=== PATIENT | male | born 1950 | race Two or more races ===

== ENCOUNTER 2024-08-29 10:35 | Inpatient (IN) | payer MEDICARE, MEDICAID ==
[~2024-08-29] VITALS: Ht 167.6 cm; Wt 93.3 kg
[2024-08-29] MEDS ORDERED: ONDANSETRON HCL 4 MG/2 ML VIAL IV PRN (11:30)
[2024-08-29] MEDS ORDERED: DOCUSATE SOD 100 MG CAP PO PRN (11:30)
[2024-08-29] MEDS ORDERED: ACETAMINOPHEN 325 MG TAB PO PRN (11:30)
[2024-08-29] MEDS ORDERED: LORazepam 0.5 MG TAB PO PRN (11:30)
[2024-08-29] MEDS ORDERED: MORPHINE SULFATE INJ 2 MG/ml SYRG IV PRN (11:30)
[2024-08-29 11:45] VITALS: BP 150/87; PULSE 64; RESP 17; TEMP 98; O2SAT 95
[2024-08-29 12:02] VITALS: PULSE 64; RESP 17; O2SAT 95
--- NOTE | 2024-08-29 12:11 | DVHHP2 ---
Review of Systems Medications Current Medications Medications Dose Ordered Sig/Zoraida Route Start Time Stop Time Status Last Admin Dose Admin Sodium Chloride 10 ml Q8HR IV 08/29/24 14:00 UNV Lorazepam 0.5 mg Q6HP PRN PO 08/29/24 11:30 UNV Docusate Sodium 100 mg BIDPRN PRN PO 08/29/24 11:30 UNV Acetaminophen 650 mg Q6HP PRN PO 08/29/24 11:30 UNV Acetaminophen/ Hydrocodone Bitart 1 tab Q4HP PRN PO 08/29/24 11:30 UNV Ondansetron HCl 4 mg Q4HP PRN IV 08/29/24 11:30 UNV Morphine Sulfate 2 mg Q4HPRN PRN IV 08/29/24 11:30 UNV Assessment/Plan Assessment/Plan SEE DICTATED NOTE Plan discussed with: Patient, Spouse Date of Service: Aug 29, 2024 Billing Provider: ANT FLORES MD Common Visit Codes: [id number] INP/OBS CARE (HIGH) Secondary Visit Codes: [id number] CARE PLAN 30 MINUTES ANT FLORES MD Aug 29, 2024 12:11
--- NOTE | 2024-08-29 12:16 | CODING ---
Date of Service: Aug 29, 2024 Billing Provider: ANT FLORES MD Common Visit Codes: [id number] INP/OBS CARE (HIGH) Secondary Visit Codes: 03610-[id number] CHNG SMOKING >10MIN, [id number] CARE PLAN 30 MINUTES ANT FLORES MD Aug 29, 2024 12:16
--- NOTE | 2024-08-29 12:33 | DVHHP ---
ADMIT DATE: 08/29/2024 HISTORY OF PRESENT ILLNESS: The patient is a 74-year-old gentleman who was admitted with a history of increasing pain and weakness in the left upper extremity. The patient's pain is now radiating up to the neck as well as to the base of the skull. The patient has had various treatments including physical therapy and steroid injections without much relief. He denies any trauma. No history of definitive focal deficit except for some numbness in the distal fingers. No chest pain. No shortness of breath. REVIEW OF SYSTEMS: Review of rest of systems is otherwise currently negative. PAST MEDICAL HISTORY: Significant for hypertension, questionable hyperlipidemia. MEDICATIONS: He takes atenolol and amlodipine. SOCIAL HISTORY: He smokes 4-5 cigarettes a day. Denies alcohol intake. FAMILY HISTORY: Negative. PHYSICAL EXAMINATION: GENERAL: The patient is awake, alert. VITAL SIGNS: Temperature of 98.6, pulse 72 per minute. SHEENT: Unremarkable. EXTREMITIES: He has pedal edema 1+. LUNGS: Equal bilaterally. No added sounds. CARDIOVASCULAR: S1 and S2 is regular without murmurs. ABDOMEN: Soft. There is no organomegaly. NEUROLOGIC: The patient has tenderness on movement of the left upper extremity, although he has grade 4 power in the left upper extremity. MUSCULOSKELETAL: Normal. ASSESSMENT AND PLAN: * Left-sided upper extremity pain, with cervical radiculopathy. The patient is to have an MRI of the spine and be seen by Dr. Strickland. * Hypertension. * BPH. * Questionable hyperlipidemia. * Tobacco abuse. The patient was advised to quit. He refused a nicotine patch at this time. ADVANCED CARE PLAN: The patient is a full code at this time. Time spent was 19 minutes. MD CLIFFORD Montgomery/CHRYSTAL/ISAÍAS TID: [id number] RECEIPT: [id number]
--- NOTE | 2024-08-29 12:39 | DVHINCON2 ---
MANJINDER RAMIREZ NP 08/29/24 1239: Consultation - Spinal Surgery Date Seen: Aug 29, 2024 Referring Physician Referring Physician Simone Cody MD Reason for Consultation Left-sided upper extremity pain, with cervical radiculopathy. History of Present Illness History of Present Illness The patient is a 74-year-old gentleman who was admitted with a history of increasing pain and weakness in the left upper extremity. The patient's pain is now radiating up to the neck as well as to the base of the skull. The patient has had various treatments including physical therapy and steroid injections without much relief. He denies any trauma. No history of definitive focal deficit except for some numbness in the distal fingers. No chest pain. No shortness of breath. Past Medical/Surgical History Past Medical/Surgical History PAST MEDICAL HISTORY: Significant for hypertension, questionable hyperlipidemia. Family and Social History Family and Social History SOCIAL HISTORY: He smokes 4-5 cigarettes a day. Denies alcohol intake. FAMILY HISTORY: Negative. Allergies and medications Allergies: Coded Allergies: NO KNOWN ALLERGIES (Unverified , 08/29/24) Review of systems Review of Systems: HEENT:Normal, CVS:Normal, RESPIRATORY:Normal, GI:Normal, :Normal, MSK:Normal, NEURO:Abnormal (left neck pain, intermittent cervical radiculopathy to bilateral hands) Examination Vital signs imaging MR cervical spine HISTORY: Cervical Stenosis TECHNIQUE: MR was performed with a surface coil at 1.5 T magnet. Sagittal, axial and coronal T1 and T2-weighted images were obtained. FINDINGS: Cervical vertebral bodies normal in height signal intensity and alignment At C2-3 no narrowing of the central canal and neural foramina At C3-4 effacement of the anterior cord surface by protruding disc and osteophytes with slight cord flattening. Slight foraminal narrowing by osteophytes At C4-5 slight moderate narrowing of the left neural foramen by osteophytes At C5-6 there is a 2 mm anterolisthesis due to degenerative facet joint disease. There is flattening of the anterior cord surface and osteophytes and bulging disc slight cord flattening. At C6-7 there is effacement of the left anterior cord surface and narrowing of the left neural foramen by osteophytes Cervical cord normal in size and signal intensity IMPRESSION: 1. Spinal stenosis caused by protruding discs osteophytes. At C3-C4, C5-C6, and C6-C7 there is flattening of the anterior cord surface without high-grade cord compression or signs of cord edema or atrophy. 2. At C4-C5 narrowing of the left neural foramen by osteophytes. At C5-C6 there is narrowing of the neural foramina right greater than left by osteophytes. At C6-C7 there is bilateral foraminal narrowing by osteophytes Vital Signs Date Time Temp Pulse Resp B/P (MAP) Pulse Ox O2 Delivery O2 Flow Rate FiO2 08/29/24 13:00 98.1 65 17 151/88 (109) 95 98.1 Medications Current Medications Medications (Trade) Dose Ordered Sig/Zoraida Route PRN Reason Start Time Stop Time Status Last Admin Sodium Chloride (Saline Lock Ns) 10 ml Q8HR IV 08/29/24 14:00 UNV Lorazepam (Ativan Tablet) 0.5 mg Q6HP PRN PO ANXIETY 08/29/24 11:30 UNV Docusate Sodium (Colace Capsule) 100 mg BIDPRN PRN PO FOR CONSTIPATION 08/29/24 11:30 UNV Acetaminophen (Tylenol Tablet) 650 mg Q6HP PRN PO PAIN SCALE 1-3 OR TEMP>100.4 08/29/24 11:30 UNV Acetaminophen/ Hydrocodone Bitart ([place] 5/325MG Tab) 1 tab Q4HP PRN PO MODERATE PAIN (4-6 PAIN SCALE) 08/29/24 11:30 UNV Ondansetron HCl (Zofran) 4 mg Q4HP PRN IV NAUSEA / VOMITING 08/29/24 11:30 UNV Morphine Sulfate 2 mg Q4HPRN PRN IV SEVERE PAIN (7-10 PAIN SCALE) 08/29/24 11:30 UNV Tamsulosin HCl (Flomax) 0.4 mg QPM PO 08/29/24 18:00 UNV Atenolol (Tenormin Tablet) 25 mg BID PO 08/29/24 22:00 UNV Hydralazine HCl (Apresoline Injection) 10 mg Q6HR IV 08/29/24 18:00 UNV Laboratory Labs Test 08/29/24 12:04 Range/Units Examination: GENERAL:Normal, HEENT:Normal, NECK:Abnormal (left lateral neck pain, cervical radiculopathy intermittently to fingers bilaterally), LUNGS:Normal, CVS:Normal, ABDOMEN:Normal, MSK:Normal (fields with 5/5 strength, and independently), SKIN:Normal, NEURO:Abnormal (left lateral neck pain, cervical radiculopathy intermittently to fingers bilaterally) Problem List/Assessment/Plan Problems: (1) Cervical stenosis of spinal canal (2) Muscle spasms of neck Assessment and Plan Plan surgery with Dr. Denny Strickland, C3-6 anterior cervical diskectomy and fusio n scheduled for August 30, 2024 Patient is to be NPO at midnight for surgery tomorrow morning Awaiting cardiac clearance/ medical clearance for surgery Risks and benefits have been discussed and the patients questions have been answered, he wishes to proceed with surgery. Call with questions Wesley Ramirez [facility] Orthopaedic Spine Surgery nurse practitioner For Dr Yaniv Strickland Patient was examined, chart reviewed, labs evaluated, and diagnostic studies and findings analyzed. Case was discussed with Dr. Denny Strickland who formulated the plan of care. This medical document was created using an electronic medical record system with [employer] dictation system. Although this document has been carefully reviewed, there might still be some phonetic and typographical errors. These areas are purely typographical due to imperfections of the software programs, and do not reflect any compromise in the patient's medical care. Plan discussed with Plan discussed with: Patient, Other (Judie Molina) DENNY STRICKLAND MD 08/30/24 1118: Consultation - Spinal Surgery Date Seen: Aug 30, 2024 Problem List/Assessment/Plan Assessment and Plan [place] [address] Ph: [phone] DIAGNOSTIC IMAGING Diagnostic Imaging Report : [id number] Signed PATIENT: JOLYNN TRINIDAD I ACCT: [id number] UNIT: [id number] : 1950 LOC: [facility] ROOM / BED: [facility] / A AGE / SEX: 74 / M ADM STATUS: ADM IN SERVICE 1117 ORDERING PHYSICIAN: HENNY GARCIA MD PROCEDURE(s): MNE - CERVICAL WO CONTRAST REASON: Cervical Stenosis ORDER NUMBER(s): [id number], ACCESSION NUMBER(s): [id number] MR cervical spine HISTORY: Cervical Stenosis TECHNIQUE: MR was performed with a surface coil at 1.5 T magnet. Sagittal, axial and coronal T1 and T2-weighted images were obtained. FINDINGS: Cervical vertebral bodies normal in height signal intensity and alignment At C2-3 no narrowing of the central canal and neural foramina At C3-4 effacement of the anterior cord surface by protruding disc and osteophytes with slight cord flattening. Slight foraminal narrowing by osteophytes At C4-5 slight moderate narrowing of the left neural foramen by osteophytes At C5-6 there is a 2 mm anterolisthesis due to degenerative facet joint disease. There is flattening of the anterior cord surface and osteophytes and bulging disc slight cord flattening. At C6-7 there is effacement of the left anterior cord surface and narrowing of the left neural foramen by osteophytes Cervical cord normal in size and signal intensity IMPRESSION: 1. Spinal stenosis caused by protruding discs osteophytes. At C3-C4, C5-C6, and C6-C7 there is flattening of the anterior cord surface without high-grade cord compression or signs of cord edema or atrophy. 2. At C4-C5 narrowing of the left neural foramen by osteophytes. At C5-C6 there is narrowing of the neural foramina right greater than left by osteophytes. At C6-C7 there is bilateral foraminal narrowing by osteophytes ATED BY: KRIS MENDEZ MD DICTATED DATE/TIME: 08/29/241610 SIGNED BY: KRIS MENDEZ MD SIGNED DATE/TIME: 08/29/241610 CC: The patient is completely incapacitated from the axial spine pain and radiculopathy symptoms. P.T. was tried and failed. Spinal injections were tried and failed. The patient is unable to perform activities of daily living and the symptoms have taken over the patient's life. Non operative treatment has been maximized and failed. The patient is asking for surgical recommendations from me. I think that surgery will offer benefit to the patient at this point. The patient and I viewed videos from my website detailing the diagnosis and treatment plan. The patient understands the diagnosis and treatment plan after watching the videos. I have offered the pt. : cervical 3 to 6 anterior cervical discectomy and fusion with bone graft and instrumentation The risks/benefits/alternatives of surgery including but not limited to pain, bleeding, infection, damage to surrounding soft tissue structures, need for reoperation or future surgery, persistent pain/disability/deformity, pseudarthrosis, bone graft collapse or extrusion of interbody device, instrumentation failure, need for instrumentation removal, dural tear, temporary or permanent nerve root damage, damage to esophagus/trachea/blood vessels, recurrent laryngeal nerve injury, dysphagia/odynophagia, paralysis, stroke, deep venous thrombosis, pulmonary embolism, and any associated anesthetic risks (dry mouth, sore throat, dental damage, myocardial infarction, respiratory depression, blindness) were described to the patient in detail and she wished to proceed. No guarantee of surgical outcome/improvement was implied. All of the questions were answered thoroughly and consents were obtained. We will obtain the necessary pre-op tests in order for her to be cleared medically. Plan discussed with Plan discussed with: Patient MANJINDER RAMIREZ NP Aug 29, 2024 12:39 DENNY STRICKLAND MD Aug 30, 2024 11:18
[2024-08-29 12:40] LABS: Urine Bacteria None Seen /hpf (None Seen)
[2024-08-29 12:58] LABS: Basophils # (auto) 0.1 10 ^3/uL (0-0.2); Basophils % (auto) 0.8 % (0.0-2.0); Eosinophils # (auto) 0.3 10 ^3/uL (0-0.8); Hematocrit 38.7 % (41.0-53.0); Hemoglobin 13.2 g/dL (13.5-17.5); Lymphocytes # (auto) 2.3 10 ^3/uL (0.4-5.4); Mean Corpuscular Hemoglobin 28.9 pg (28.0-32.0); Mean Corpuscular Hgb Conc. 34.1 g/dL (32.0-36.0); Mean Corpuscular Volume 84.9 fL (80.0-100.0); Monocytes # (auto) 0.8 10 ^3/uL (0-1.3); Monocytes % (auto) 9.8 % (0.0-12.0); Neutrophils % (auto) 59.4 % (37.0-80.0); Nucleated Red Blood Cells % 0.1 %; Platelet Count (auto) 205 10^3/uL (140-450); Red Blood Cells 4.56 10^6/uL (4.5-5.90); Red Cell Distribution Width 14.7 % (11.8-14.3); White Blood Cell 8.4 10^3/uL (4.4-10.8)
[2024-08-29 13:00] VITALS: BP 151/88; PULSE 65; RESP 17; TEMP 98.1; O2SAT 95
[2024-08-29 13:00] LABS: Alanine Aminotransferase 16 U/L (7-40); Albumin 4.4 g/dL (3.2-4.8); Alkaline Phosphatase 75 U/L (46-116); Anion Gap 7 (5-15); BUN/Creatinine Ratio 13.8 (10.0-20.0); Bilirubin, Total 0.6 mg/dL (0.2-1.0); Blood Urea Nitrogen 18 mg/dL (9-23); Calcium 10.3 mg/dL (8.7-10.4); Carbon Dioxide 28 mmol/L (20-31); Chloride 105 mmol/L (98-107); Glucose 89 mg/dL (74-106); Potassium 4.3 mmol/L (3.5-5.1); Sodium 140 mmol/L (136-145); Total Protein 7.3 g/dL (5.7-8.2)
[2024-08-29 13:05] LABS: Urine Blood Negative /uL (Negative); Urine Clarity Clear (Clear); Urine Color Light-Yellow (Yellow); Urine Protein, UAD Negative (Negative); Urine Specific Gravity 1.009 (1.001-1.035); Urine Squamous Epithelial Cell None Seen /hpf (<5); Urine Urobilinogen Normal (Negative); Urine WBC 4 /HPF (0-3)
[2024-08-29 13:08] LABS: Aspartate Aminotransferase 12 U/L (13-40); INR 1.03 (0.9-1.15); Partial Thromboplastin Time 25.4 SEC (24.5-34.5); Prothrombin Time 10.9 sec (9.3-11.8)
--- NOTE | 2024-08-29 13:18 | DVH ---
CHEST RADIOGRAPH Indication: sob Technique: Frontal and lateral view of the chest was obtained Comparison: None FINDINGS: Lines and Tubes: None Lungs: Patchy bilateral lower lobe airspace disease. Pleura: No effusion. No pneumothorax. Cardiomediastinal contours: Unremarkable Bones: Unremarkable IMPRESSION: Patchy bilateral lower lobe airspace disease.
[2024-08-29] MEDS: SODIUM CHLOR 0.9% PF (SALINE LOCK) 10ML VIAL/SYR IV SCH (14:00)
[2024-08-29] MEDS: HYDROcodone-ACET 5/325MG TAB PO PRN (16:02)
--- NOTE | 2024-08-29 16:14 | DVH ---
MR cervical spine HISTORY: Cervical Stenosis TECHNIQUE: MR was performed with a surface coil at 1.5 T magnet. Sagittal, axial and coronal T1 and T 2-weighted images were obtained. FINDINGS: Cervical vertebral bodies normal in height signal intensity and alignment At C2-3 no narrowing of the central canal and neural foramina At C3-4 effacement of the anterior cord surface by protruding disc and osteophytes with slight cord f lattening. Slight foraminal narrowing by osteophytes At C4-5 slight moderate narrowing of the left neural foramen by osteophytes At C5-6 there is a 2 mm anterolisthesis due to degenerative facet joint disease. There is flattening of the anterior cord surface and osteophytes and bulging disc slight cord flattening. At C6-7 there is effacement of the left anterior cord surface and narrowing of the left neural forame n by osteophytes Cervical cord normal in size and signal intensity IMPRESSION: 1. Spinal stenosis caused by protruding discs osteophytes. At C3-C4, C5-C6, and C6-C7 there is flatte bruno of the anterior cord surface without high-grade cord compression or signs of cord edema or atrop hy. 2. At C4-C5 narrowing of the left neural foramen by osteophytes. At C5-C6 there is narrowing of the n eural foramina right greater than left by osteophytes. At C6-C7 there is bilateral foraminal narrowin g by osteophytes
[2024-08-29 17:00] VITALS: BP 141/85; PULSE 76; RESP 16; TEMP 98; O2SAT 91
--- NOTE | 2024-08-29 17:46 | DVHINCON2 ---
Date of service: Aug 29, 2024 History of Present Illness 74 yo M with hx of borderline DM, htn, obesity admitted for severe neck pain. pt is getting eval for spine surgery. i am called for preop eval. pt has a cards in [place] and had some type of workup in past 6 months and "it was normal". Past Medical History reviewed Family History: Patient reports no known family medical history. Allergies: Coded Allergies: NO KNOWN ALLERGIES (Unverified , 08/29/24) Current Medications Current Medications Medications (Trade) Dose Ordered Sig/Zoraida Route PRN Reason Start Time Stop Time Status Last Admin Sodium Chloride (Saline Lock Ns) 10 ml Q8HR IV 08/29/24 14:00 Lorazepam (Ativan Tablet) 0.5 mg Q6HP PRN PO ANXIETY 08/29/24 11:30 Docusate Sodium (Colace Capsule) 100 mg BIDPRN PRN PO FOR CONSTIPATION 08/29/24 11:30 Acetaminophen (Tylenol Tablet) 650 mg Q6HP PRN PO PAIN SCALE 1-3 OR TEMP>100.4 08/29/24 11:30 Acetaminophen/ Hydrocodone Bitart ([place] 5/325MG Tab) 1 tab Q4HP PRN PO MODERATE PAIN (4-6 PAIN SCALE) 08/29/24 11:30 08/29/24 16:02 Ondansetron HCl (Zofran) 4 mg Q4HP PRN IV NAUSEA / VOMITING 08/29/24 11:30 Morphine Sulfate 2 mg Q4HPRN PRN IV SEVERE PAIN (7-10 PAIN SCALE) 08/29/24 11:30 Tamsulosin HCl (Flomax) 0.4 mg QPM PO 08/29/24 18:00 Atenolol (Tenormin Tablet) 25 mg BID PO 08/29/24 22:00 Hydralazine HCl (Apresoline Injection) 10 mg Q6HR IV 08/29/24 18:00 Review of Systems 10 pt ros otherwise negative Vital Signs Vital Signs Date Time Temp Pulse Resp B/P (MAP) Pulse Ox O2 Delivery O2 Flow Rate FiO2 08/29/24 13:00 98.1 65 17 151/88 (109) 95 98.1 Physical Exam nad s1 s2 rrr ctab soft nt/nd no edema Labs/Diagnostic Data Labs Test 08/29/24 12:39 08/29/24 12:04 Range/Units Urine Color Light-yellow Yellow Urine Clarity Clear Clear Urine pH 6.0 5.0-9.0 Urine Specific Josephine 1.009 1.001-1.035 Urine Protein Negative Negative Urine Ketones Negative Negative Urine Blood Negative Negative /uL Urine Nitrite Negative Negative Urine Bilirubin Negative Negative Urine Urobilinogen Normal Negative mg/dL Urine Leukocyte Esterase 1+ Negative /uL Urine RBC None seen 0 - 3 /hpf Urine Microscopic WBC 4 H 0-3 /HPF Urine Squamous Epithelial Cells None seen <5 /hpf Urine Bacteria None seen None Seen /hpf Urine Glucose Normal Normal mg/dL White Blood Count 8.4 4.4-10.8 10^3/uL Red Blood Count 4.56 4.5-5.90 10^6/uL Hemoglobin 13.2 L 13.5-17.5 g/dL Hematocrit 38.7 L 41.0-53.0 % Mean Corpuscular Volume 84.9 80.0-100.0 fL Mean Corpuscular Hemoglobin 28.9 28.0-32.0 pg Mean Corpuscular Hemoglobin Concent 34.1 32.0-36.0 g/dL Red Cell Distribution Width 14.7 H 11.8-14.3 % Platelet Count 205 140-450 10^3/uL Mean Platelet Volume 7.8 6.9-10.8 fL Neutrophils (%) (Auto) 59.4 37.0-80.0 % Lymphocytes (%) (Auto) 27.0 10.0-50.0 % Monocytes (%) (Auto) 9.8 0.0-12.0 % Eosinophils (%) (Auto) 3.0 0.0-7.0 % Basophils (%) (Auto) 0.8 0.0-2.0 % Neutrophils # (Auto) 5.0 1.6-8.6 10 ^3/uL Lymphocytes # (Auto) 2.3 0.4-5.4 10 ^3/uL Monocytes # (Auto) 0.8 0-1.3 10 ^3/uL Eosinophils # (Auto) 0.3 0-0.8 10 ^3/uL Basophils # (Auto) 0.1 0-0.2 10 ^3/uL Nucleated Red Blood Cells 0.1 % Prothrombin Time 10.9 9.3-11.8 sec Prothrombin Time INR 1.03 0.9-1.15 Activated Partial Thromboplast Time 25.4 24.5-34.5 SEC Sodium Level 140 136-145 mmol/L Potassium Level 4.3 3.5-5.1 mmol/L Chloride Level 105 98-107 mmol/L Carbon Dioxide Level 28 20-31 mmol/L Anion Gap 7 5-15 Blood Urea Nitrogen 18 9-23 mg/dL Creatinine 1.30 0.700-1.30 mg/dL Glomerular Filtration Rate Calc 58 >90 mL/min BUN/Creatinine Ratio 13.8 10.0-20.0 Serum Glucose 89 74-106 mg/dL Hemoglobin A1c 6.4 H <5.7 % A1C Calcium Level 10.3 8.7-10.4 mg/dL Total Bilirubin 0.6 0.2-1.0 mg/dL Aspartate Amino Transferase (AST) 12 L 13-40 U/L Alanine Aminotransferase (ALT) 16 7-40 U/L Alkaline Phosphatase 75 46-116 U/L Total Protein 7.3 5.7-8.2 g/dL Albumin 4.4 3.2-4.8 g/dL Assessment preop eval borderline DM HTN obesity c spine disease Plan/Recommendation pt cannot achieve 4 mets he can do all ADLs per notes, pt may have had SPECT done in past 6 months which was normal, ecg is SR and normal axis, normal cv exam HR and bp stable pt can proceed to OR at acceptable intermediate risk Plan discussed with: Patient HERRERACYRIL MD Aug 29, 2024 17:46
[2024-08-29] MEDS: hydrALAZINE HCL 20 MG/ML VL IV SCH (17:58)
[2024-08-29] MEDS: TAMSULOSIN HYDROCHLORIDE 0.4 MG CAP PO SCH (17:59)
--- NOTE | 2024-08-29 18:16 | DVHSR ---
APPROVED REPORT EXAM: Two-dimensional and M-mode echocardiogram with Doppler and color Doppler. INDICATION Pre-Op RISK FACTORS Height: 65, Weight: 190 DIMENSIONS LVDd4.7 (3.8-5.7cm)LA (2D)3.9 (1.9-4.0cm)Aortic Root4.0 (2.0-3.7cm) LVDs2.7 (2.5-4.0cm)LA (MM) (1.9-4.0cm)Aortic Cusp Exc1.9 (1.5-2.0cm) EF (%) 74.0 (55-70%)Rt. Atrium (1.9-4.0cm)Asc. Aorta cm IVSd1.1 (0.7-1.1cm)RV (D) (1.8-2.4cm) PWd1.1 (0.7-1.1cm) Mitral Valve MitralMitral Stenosis E wave0.84m/sMV Mean GR.mmHg A wave0.92m/sMV Peak GR.mmHg E/A ratio0.92D MVAcm2 DECEL [id number] 1/2 [id number] IVRTmsDop MVA2.88cm2 Aortic Valve Aortic ValveAortic Stenosis V11.04m/Haylee Mean GR.5mmHg V21.47m/Haylee Peak GR.9mmHg LVOT Diameter2.1 (1.8-2.4cm)Doppler AVA2.45cm2 Pulmonic Valve V20.98m/s Tricuspid Valve TR Velocity2.65m/s [id number] LEFT VENTRICLE Mild LVH Mild diastolic dysfunction LVEF normal 60-65% RIGHT VENTRICLE Systolic function is normal TRICUSPID VALVE mild pulmonary htn rvsp 35-40 Conclusion LVEF normal 60-65% Systolic function is normal Mild LVH Mild diastolic dysfunction mild pulmonary htn rvsp 35-40
[2024-08-29 20:00] VITALS: PULSE 68; RESP 17; O2SAT 95
[2024-08-29 21:00] VITALS: BP 133/78; PULSE 65; RESP 18; TEMP 97.9; O2SAT 95
[2024-08-29] MEDS: ATENOLOL 25 MG TAB PO SCH (21:41)
[2024-08-30] VITALS (11 sets, daily range): BP systolic 117–143; BP diastolic 59–82; PULSE 68–106; RESP 11–20; TEMP 97.5–98.4; O2SAT 93–98
--- NOTE | 2024-08-30 08:57 | ECG ---
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
[2024-08-30 09:07] LABS: PSA Free 1.46 ng/mL
[2024-08-30] MEDS: ceFAZolin 2 GM/D5W50ml 50 ML IV ONE (10:27)
[2024-08-30] MEDS: TRANEXAMIC ACID 20 ML ONE (10:28)
[2024-08-30] MEDS: cefTRIAXone 1GM/50ML D5W 50 ML IV ONE (10:30)
--- NOTE | 2024-08-30 10:30 | DVHPN2 ---
Progress Note Date Seen: Aug 30, 2024 Medical Necessity Reason Pt with a Central, PICC or Fol: No Subjective Patient reports: No new complaints Review of Systems: HEENT:Normal, CVS:Normal, RESPIRATORY:Normal, GI:Normal, :Normal, MSK:Normal, NEURO:Normal Objective vital signs Vital Sign Date Time Temp Pulse Resp B/P (MAP) Pulse Ox O2 Delivery O2 Flow Rate FiO2 08/30/24 09:00 98.4 88 19 117/59 (78) 96 98.4 08/30/24 08:00 Room Air* 0 21 Total Intake and Output 08/29/24 08/29/24 08/30/24 15:00 23:00 07:00 Intake Total 400 ml 100 ml Balance 400 ml 100 ml medications Current Medications Medications Dose Ordered Sig/Zoraida Route Start Time Stop Time Status Last Admin Dose Admin Sodium Chloride 10 ml Q8HR IV 08/29/24 14:00 08/30/24 05:27 10 ML Lorazepam 0.5 mg Q6HP PRN PO 08/29/24 11:30 Docusate Sodium 100 mg BIDPRN PRN PO 08/29/24 11:30 Acetaminophen 650 mg Q6HP PRN PO 08/29/24 11:30 Acetaminophen/ Hydrocodone Bitart 1 tab Q4HP PRN PO 08/29/24 11:30 08/29/24 16:02 1 TAB Ondansetron HCl 4 mg Q4HP PRN IV 08/29/24 11:30 Morphine Sulfate 2 mg Q4HPRN PRN IV 08/29/24 11:30 Tamsulosin HCl 0.4 mg QPM PO 08/29/24 18:00 08/29/24 17:59 0.4 MG Atenolol 25 mg BID PO 08/29/24 22:00 08/29/24 21:41 25 MG Hydralazine HCl 10 mg Q6HR IV 08/29/24 18:00 08/30/24 05:26 10 MG Examination: GENERAL:Normal, HEENT:Normal, NECK:Normal, LUNGS:Normal, CVS:Normal, ABDOMEN:Normal, MSK:Normal, SKIN:Normal, NEURO:Normal, :Normal laboratory and microbiology Laboratory Tests 08/29/24 12:04 Test 08/29/24 12:04 Range/Units Serum Glucose 89 74-106 mg/dL Problem List/Assessment/Plan Problem List/Assessment/Plan * Left-sided upper extremity pain, with cervical radiculopathy/ cervical stenosis: surg today * Hypertension. * BPH. * ? uti: culture, iv rocephin * Questionable hyperlipidemia. * Tobacco abuse. The patient was advised to quit. He refused a nicotine patch at this time- time spent 11 mins Plan discussed with: Other (rn) My Orders My Orders Orders - ANT FLORES MD Procedure Category Date Status Time Cardiac DIET 08/29/24 Transmitted Diet-2gna,Lofat,Lochol Lunch Tamsulosin PHA 08/29/24 In Process Hydrochloride (Flomax) 18:00 Atenolol Tablet PHA 08/29/24 In Process (Tenormin Tablet) 22:00 Hydralazine Injection PHA 08/29/24 In Process (Apresoline Inject 18:00 * Cardiology Consult CONS 08/29/24 Transmitted 12:50 Urine Bacterial BARBARA 08/30/24 Transmitted Culture 10:27 Ceftriaxone Ivpb PHA 08/31/24 Transmitted Rocephin 09:00 Ceftriaxone Ivpb PHA 08/30/24 Transmitted Rocephin 10:30 Complete Blood Count LAB 08/31/24 Verified 06:00 Comprehensive LAB 08/31/24 Verified Metabolic Panel 06:00 Date of Service: Aug 30, 2024 Billing Provider: ANT FLORES MD Common Visit Codes: [id number] INP/OBS CARE(HIGH) Secondary Visit Codes: [id number] CHNG SMOKING >10MIN NAT FLORES MD Aug 30, 2024 10:30
[2024-08-30] MEDS ORDERED: MIDAZOLAM HCL 2MG/2ML 2ml VIAL (1mg/ml) ONE (12:05)
[2024-08-30] MEDS ORDERED: PROPOFOL 10 MG/ML 20 ML IV ONE ×5 (12:05→15:25)
[2024-08-30] MEDS ORDERED: fentaNYL CITRATE 100 MCG/2 ML VL ONE (12:05)
[2024-08-30] MEDS ORDERED: DexAMETHasone SOD PHOS 10MG/1ML VIAL INJ ONE (12:17)
[2024-08-30] MEDS ORDERED: ONDANSETRON HCL 4 MG/2 ML VIAL ONE (12:17)
[2024-08-30] MEDS ORDERED: fentaNYL CITRATE 5 ML ONE (12:21)
[2024-08-30] MEDS: levoFLOXacin 500MG 200 ML IV ONE (12:36)
[2024-08-30] MEDS ORDERED: SUGAMMADEX 200mg/2ml Vial (100MG/ML) IV ONE (15:15)
[2024-08-30] MEDS ORDERED: HYDROCORTISONE SOD SUCC 100 MG/2ML INJ VIAL ONE (15:19)
[2024-08-30] MEDS ORDERED: ePHEDrine SULFATE 50 MG/ML AMP ONE (15:20)
[2024-08-30] MEDS ORDERED: MORPHINE SULFATE INJ 2 MG/ml SYRG IV PRN (16:00)
[2024-08-30] MEDS ORDERED: ONDANSETRON HCL 4 MG/2 ML VIAL IV PRN (16:00)
--- NOTE | 2024-08-30 16:04 | DVHOP2 ---
Operative Report - 2 Report Details Date: 08/30/24 Preop Diagnosis: cervical spinal stenosis with myelopathy Postop Diagnosis: same as pre op Surgeon: Denny Strickland MD Spring Assembler Supervisor: Henny Jurado NP Anesthesiologist: CM Anesthesia: General Consent: The patient was informed of the risks and benefits of the procedure. These include but are not limited to complications of anesthesia, postoperative infection, incomplete relief of symptoms, recurrence of symptoms, damage to blood vessels, nerves and tendons, deep venous thrombosis, pulmonary embolism a nd possible need for repeat surgery in the future. Name of Procedure Performed see detailed note Procedure Details Procedure Details: Pre Op Diagnosis: Cervical Degenerative Disk Disease and Severe Spinal Stenosis Causing incapacitating neck pain, radiculopathy and progressive neurologic deficit Post Op Diagnosis: 1. Cervical Degenerative Disk Disease and Spinal Stenosis Causing incapacitating neck pain, radiculopathy and progressive neurologic deficit Procedure: Cervical 3 to 4 anterior cervical discectomy with Cervical 3-4 foraminotomies and facetectomies to decompression the spinal canal and Cervical 4 nerve roots Cervical 4 to 5 anterior cervical discectomy with Cervical 4-5 foraminotomies and facetectomies to decompression the spinal canal and Cervical 5 nerve roots Cervical 5 to 6 anterior cervical discectomy with Cervical 5-6 foraminotomies and facetectomies to decompression the spinal canal and Cervical 6 nerve roots Cervical 3-6 anterior cervical Fusion Cervical 3-6 anterior cervical instrumentation with freestanding cages Cervical 3-4 placement of allograft prosthetic device Cervical 4-5 placement of allograft prosthetic device Cervical 5-6 placement of allograft prosthetic device Microscope for micro dissection Surgeon: Denny Strickland MD Anesthesia: General Assist: Henny Jurado NP Fluids and EBL: see anesthesia note Procedure Note: The patient was seen in the Pre-anesthesia Care Unit and the site of the incision was initialed by me with a felt tipped marker. All questions by the patient were answered to the satisfaction of the patient and the chart was re viewed. The patient was taken to the operating room and placed supine on the [facility] Flat top table. General anesthesia was induced. Neuromonitoring leads were placed. A rolled towel was placed between the shoulder blades to hyperextend out the chest which will allow better exposure of the cervical spine. Halter traction to 10 pounds was placed. The arms were padded and a dducted to the patients side making sure all pulses in the hands were present. Tape traction was undertaken on the shoulders to give us better radiographic exposure of the distal cervical spine. A gel-pad was placed under the occiput and 5 degrees of extension was placed on the neck without adverse effects to the patient. The anterior neck was prepped and draped. Pre-operative antibiotics were given 30 minutes prior to the start of the procedure. A c-arm fluoroscope was used to james out the incision site. At this time, a time out was taken per usual protocol. Next an incision was made through the skin with a 15 blade scalpel through the subcutaneous tissue down to the platysma. Self-retainers were placed. The platysma was incised along the longitudinal border with a Metzenbaum scissors. Blunt dissection was made through the deep cervical and pre-tracheal fascia taking care to protect the carotid sheath laterally and the Trachea/esophagus medially. The dissection was carried down to the prevertebral fascia. Any crossing vessels were ligated using a vascular clip or coagulated with a bovie. An esophageal retractor was next used to retract the trachea/esophagus and a bent [address] through the anterior annulus of the cervical disk and a lateral C-arm fluoroscopic image was taken to confirm that we were at the correct level. Next, bovie electrocautery was used to expose the bones of cervical 3,4,5,6 and bipolar electrocuatery was used to lift up the Longus colli and capitus muscles. Black-Belt Self Retainers were used to retract the longus colli and capitus muscles bilaterally as well as the trachea/esophagus to the right and the carotid sheath to the left. Smooth thin Black-Belt retractors were placed proximally and distally and a needle was placed again in the anterior annulus of the disk and an image taken to confirm the correct level. At this point, the microscope was wheeled in and an 11 blade scalpel incised the anterior annulus of the cervical 3/4 and 4/5 and 5/6 disks. Next, straight and curved curettes removed the remainder of the disks all the way down to the posterior longitudinal ligament. Carefully, a Kerison number one rongeur incised the posterior longitudinal ligament at the lateral end of the above disks and using a micro, blunt tip nerve hook to separate the posterior longitudinal ligament from the dura, alternating 1 mm and 2 mm Kerison rongeurs removed the posterior longitudinal ligament. Next, Kerison 1mm and 2 mm rongeurs were alternated to get under the uncinate processes and undercut them to perform foraminotomies and factectomies at the cervical 3/4 and 4/5 and 5/6 levels to decompress the central canal and cervical 4,5 and 6 nerve roots. Next the microscope was wheeled away and the c-arm fluoroscope was wheeled into the field and a lateral image was obtained. Increasing size graft trials were used starting at a 5 mm thick size until the proper tension in the disk space and height sikhism obtained. We then placed final free standing cages at C3/4 and 4/5 and 5/6. Satisfactory placement was confirmed in the AP and lateral views using a C-arm fluoroscope. Copious irrigation of the wound with sterile saline and all bleeding was controlled before closure initiated. At this point, a 10 Serbian round Jose M Drain was place deep to the Platysma muscle and the Platysma was approximated with one interrupted 0-Vicryl suture. The subcutaneous tissue was closed with interrupted 2-0 vicryl sutures and the skin was closed with sushil. Sterile dressings were placed and a cervical collar placed, the patient extubated, transferred to the stretcher and taken to the Recovery Room in unremarkable condition. Other Notes: Following the case, in PACU, the patient had placement of a Dellroy J equivalent cervical collar Condition Stable Disposition Still a Patient DENNY STRICKLAND MD Aug 30, 2024 16:04
[2024-08-30] MEDS: MIDAZOLAM HCL 2MG/2ML 2ml VIAL (1mg/ml) ONE (16:30)
[2024-08-30] MEDS: ONDANSETRON HCL 4 MG/2 ML VIAL IV ONE (16:30)
[2024-08-30] MEDS: MIDAZOLAM HCL 2MG/2ML 2ml VIAL (1mg/ml) IV PRN (16:40)
[2024-08-30] MEDS: HYDROmorphone HCL 2 MG/ML VL/or syr IV PRN (16:41)
[2024-08-30] MEDS: D5W/SOD CHLO 0.9% 1,000 ML IV SCH (18:50)
--- NOTE | 2024-08-30 19:27 | DVH ---
C-ARM FLUOROSCOPY: PROCEDURE: C3-6 ANTERIOR DISCECTOMY FLUOROSCOPY TIME: 63 sec DAP: 13.7 mgy FINDINGS: Spot intraoperative C arm radiographs demonstrating C3-6 ANTERIOR DISCECTOMY. IMPRESSION: Please refer to surgical report for detailed findings.
--- NOTE | 2024-08-30 19:27 | DVH ---
C-ARM FLUOROSCOPY: PROCEDURE: C3-6 ANTERIOR DISCECTOMY FLUOROSCOPY TIME: 63 sec DAP: 13.7 mgy FINDINGS: Spot intraoperative C arm radiographs demonstrating C3-6 ANTERIOR DISCECTOMY. IMPRESSION: Please refer to surgical report for detailed findings.
[2024-08-30] MEDS: CYCLOBENZAPRINE HCL 10 MG TAB PO SCH (21:27)
[2024-08-30] MEDS: DOCUSATE SOD 100 MG CAP PO SCH (21:28)
[2024-08-30] MEDS: methylPREDNISolone SOD SUCC 125 MG/2 ML VL IV SCH (21:29)
[2024-08-30] MEDS: ceFAZolin 1GM/50ML 50 ML IV SCH (21:30)
[2024-08-30] MEDS: TAMSULOSIN HYDROCHLORIDE 0.4 MG CAP PO ONE (23:30)
[2024-08-31] VITALS (8 sets, daily range): BP systolic 129–146; BP diastolic 61–93; PULSE 75–95; RESP 18–20; TEMP 97.5–98.9; O2SAT 94–97
[2024-08-31 05:45] LABS: Basophils # (auto) 0 10 ^3/uL (0-0.2); Eosinophils # (auto) 0 10 ^3/uL (0-0.8); Hematocrit 38.4 % (41.0-53.0); Hemoglobin 12.7 g/dL (13.5-17.5); Lymphocytes % (auto) 9.3 % (10.0-50.0); Mean Corpuscular Hemoglobin 28.5 pg (28.0-32.0); Mean Corpuscular Volume 86.6 fL (80.0-100.0); Monocytes # (auto) 0.2 10 ^3/uL (0-1.3); Monocytes % (auto) 1.4 % (0.0-12.0); Neutrophils # (auto) 9.3 10 ^3/uL (1.6-8.6); Neutrophils % (auto) 89.3 % (37.0-80.0); Nucleated Red Blood Cells % 0.1 %; Platelet Count (auto) 202 10^3/uL (140-450); Red Blood Cells 4.43 10^6/uL (4.5-5.90); Red Cell Distribution Width 15.3 % (11.8-14.3); White Blood Cell 10.4 10^3/uL (4.4-10.8)
[2024-08-31 05:53] LABS: Alanine Aminotransferase 16 U/L (7-40); Albumin 4.1 g/dL (3.2-4.8); Alkaline Phosphatase 70 U/L (46-116); Anion Gap 10 (5-15); Aspartate Aminotransferase 23 U/L (13-40); BUN/Creatinine Ratio 12.6 (10.0-20.0); Blood Urea Nitrogen 17 mg/dL (9-23); Calcium 9.4 mg/dL (8.7-10.4); Carbon Dioxide 23 mmol/L (20-31); Chloride 106 mmol/L (98-107); Potassium 4.5 mmol/L (3.5-5.1); Sodium 139 mmol/L (136-145); Total Protein 6.8 g/dL (5.7-8.2)
[2024-08-31 05:54] LABS: Bilirubin, Total 0.6 mg/dL (0.2-1.0)
[2024-08-31 06:01] LABS: Glucose 148 mg/dL (74-106)
[2024-08-31] MEDS: HYDROcodone-ACET 10/325MG TAB PO PRN (08:52)
[2024-08-31] MEDS ORDERED: cefTRIAXone 1GM/50ML D5W 50 ML IV SCH (09:00)
--- NOTE | 2024-08-31 09:00 | DVHPN2 ---
Progress Note - Surgical Date Seen: Aug 31, 2024 Post op day Post op day: 1 Subjective Patient reports: No new complaints, Feels better (Patient states that his preoperative symptoms have resolved) Review of Systems: HEENT:Normal, CVS:Normal, RESPIRATORY:Normal, GI:Normal, :Normal, MSK:Normal, NEURO:Normal (no new neuro deficits or decline over night) Objective Vital signs Vital Sign Date Time Temp Pulse Resp B/P (MAP) Pulse Ox O2 Delivery O2 Flow Rate FiO2 08/31/24 08:53 91 141/83 08/31/24 08:00 18 96 Room Air* 0 21 08/31/24 05:00 97.6 97.6 Total Intake and Output 08/30/24 08/30/24 08/31/24 15:00 23:00 07:00 Intake Total 110 ml 100 ml 330 ml Balance 110 ml 100 ml 330 ml Medications Current Medications Medications Dose Ordered Sig/Zoraida Route Start Time Stop Time Status Last Admin Dose Admin Sodium Chloride 10 ml Q8HR IV 08/29/24 14:00 08/31/24 05:38 10 ML Lorazepam 0.5 mg Q6HP PRN PO 08/29/24 11:30 Docusate Sodium 100 mg BIDPRN PRN PO 08/29/24 11:30 Tamsulosin HCl 0.4 mg QPM PO 08/29/24 18:00 08/29/24 17:59 0.4 MG Atenolol 25 mg BID PO 08/29/24 22:00 08/31/24 08:53 25 MG Hydralazine HCl 10 mg Q6HR IV 08/29/24 18:00 08/31/24 05:45 10 MG Ceftriaxone Sodium 50 ml @ 100 mls/hr DAILY@09 IV 08/31/24 09:00 Future hold Dextrose/Sodium Chloride 1,000 ml @ 100 mls/hr Q10H IV 08/30/24 16:00 08/31/24 02:00 100 MLS/HR Ondansetron HCl 4 mg Q4HP PRN IV 08/30/24 16:00 Acetaminophen 650 mg Q6HP PRN PO 08/30/24 16:00 Acetaminophen/ Hydrocodone Bitart 1 tab Q6HP PRN PO 08/30/24 16:00 08/31/24 08:52 1 TAB Morphine Sulfate 1 mg Q4HP PRN IV 08/30/24 16:00 Cyclobenzaprine HCl 10 mg TID PO 08/30/24 22:00 08/31/24 05:38 10 MG Docusate Sodium 100 mg BID PO 08/30/24 22:00 08/31/24 08:52 100 MG Cefazolin Sodium 50 ml @ 100 mls/hr Q8HR IV 08/30/24 22:00 09/01/24 14:29 08/31/24 05:39 100 MLS/HR Methylprednisolone Sodium Succinate 80 mg Q8HR IV 08/30/24 22:00 08/31/24 05:38 80 MG Laboratory Laboratory Tests 08/31/24 04:56 Test 08/31/24 04:56 Range/Units Serum Glucose 148 H 74-106 mg/dL Examination: GENERAL:Normal, HEENT:Normal, NECK:Normal, LUNGS:Normal, CVS:Normal, ABDOMEN:Normal, MSK:Normal, SKIN:Normal (Left lateral anterior neck wound well approximated with sushil, drain intact.), NEURO:Normal (Patient reports that his preoperative symptoms have resolved and he feels very good, up ambulating in the room), :Normal Problem List/Assessment/Plan Problems: (1) Postoperative pain after spinal surgery (2) Cervical stenosis of spinal canal (3) Muscle spasms of neck Assessment and Plan Events of today drain is discontinued Patient is up ambulating in room Patient has good dietary intake recommend discontinuing IV fluids Patient is progressing to discharge Continue physical therapy while in-house Disposition: -Pending per admitting team's discretion -Discharge RX: Spine recommends oral analgesics as well as muscle relaxers preferably Flexeril 10 mg 3 times a day -Follow up appointment: with Dr Strickland in two weeks [id number] [facility] [address] [place] [id number] -Pain: Per admitting team's discretion -Antibiotics Operative recommendations: -Postoperative dose:-Post operative antibiotics cefazolin 1 g IV piggyback every 8 hours x 48 hours total of 6 doses -DVT PPX: -Hold all chemical DVT/ blood thinners for 14 days postoperatively -use mechanical DVT PPX such as SCD's, ambulation -Activity: -Pending PT evaluation and patients progression -Sit at side of bed for meals -Goal: Ambulate independently and safely (may use assistive devices if needed) -Medical Therapy goals: -Afebrile- Patient may develop a expected post operative fever by day 2-3, this may not be accompanied with a elevation in WBC. if fever develops: Acetaminophen for fever. Albuterol nebulizer Tx every 12 hours for 24 hours to facilitate adequate lung expansion and prevent development of atelectasis. -Euglycemic: bloods sugars under 130mmol/L for optimal healing -Normotensive: Avoid events of hypertension. This helps to keep post operative healing intact and avoids destabilization of beneficial hemostatic coagulation. -Dressings -Anterior cervical patients: Nursing may change dressing as needed, expect continuous serosanguineous drainage for the next two days, this is normal and to be expected no -Bowel management: -Colace 100mg bid -Diet: Pants as tolerated -Incentive Spirometer: -10 x hour while awake, RN please educate and observe repeat demonstration, have IS at bedside POD #1 -X-rays: - none indicated at this time -Consults: -Physical Therapy evaluation, treatment recommendations, and discharge recommendations Call with questions Wesley Jurado [facility]- Orthopaedic Spine Surgery nurse practitioner For Dr Yaniv Strickland Patient was examined, chart reviewed, labs evaluated, and diagnostic studies and findings analyzed. Case was discussed with Dr. Denny Strickland who formulated the plan of care. This medical document was created using an electronic medical record system with [employer] dictation system. Although this document has been carefully reviewed, there might still be some phonetic and typographical errors. These areas are purely typographical due to imperfections of the software programs, and do not reflect any compromise in the patient's medical care. Plan discussed with Plan discussed with: Patient Visit Coding Surgery Date of Service if different f: Aug 31, 2024 Billing Provider: MANJINDER JURADO NP Surgery Visit Codes: NOT BILLABLE MANJINDER JURADO NP Aug 31, 2024 09:00
--- NOTE | 2024-08-31 10:15 | DVHPN2 ---
Progress Note Date Seen: Aug 31, 2024 Medical Necessity Reason Pt with a Central, PICC or Fol: No Subjective Patient reports: No new complaints Review of Systems: HEENT:Normal, CVS:Normal, RESPIRATORY:Normal, GI:Normal, :Normal, MSK:Normal, NEURO:Normal Objective vital signs Vital Sign Date Time Temp Pulse Resp B/P (MAP) Pulse Ox O2 Delivery O2 Flow Rate FiO2 08/31/24 09:00 98.1 91 20 141/83 (102) 95 98.1 08/31/24 08:00 Room Air* 0 21 Total Intake and Output 08/30/24 08/30/24 08/31/24 15:00 23:00 07:00 Intake Total 110 ml 100 ml 330 ml Balance 110 ml 100 ml 330 ml medications Current Medications Medications Dose Ordered Sig/Zoraida Route Start Time Stop Time Status Last Admin Dose Admin Sodium Chloride 10 ml Q8HR IV 08/29/24 14:00 08/31/24 05:38 10 ML Lorazepam 0.5 mg Q6HP PRN PO 08/29/24 11:30 Docusate Sodium 100 mg BIDPRN PRN PO 08/29/24 11:30 Tamsulosin HCl 0.4 mg QPM PO 08/29/24 18:00 08/29/24 17:59 0.4 MG Atenolol 25 mg BID PO 08/29/24 22:00 08/31/24 08:53 25 MG Hydralazine HCl 10 mg Q6HR IV 08/29/24 18:00 08/31/24 05:45 10 MG Ceftriaxone Sodium 50 ml @ 100 mls/hr DAILY@09 IV 08/31/24 09:00 Hold Dextrose/Sodium Chloride 1,000 ml @ 100 mls/hr Q10H IV 08/30/24 16:00 08/31/24 02:00 100 MLS/HR Ondansetron HCl 4 mg Q4HP PRN IV 08/30/24 16:00 Acetaminophen 650 mg Q6HP PRN PO 08/30/24 16:00 Acetaminophen/ Hydrocodone Bitart 1 tab Q6HP PRN PO 08/30/24 16:00 08/31/24 08:52 1 TAB Morphine Sulfate 1 mg Q4HP PRN IV 08/30/24 16:00 Cyclobenzaprine HCl 10 mg TID PO 08/30/24 22:00 08/31/24 05:38 10 MG Docusate Sodium 100 mg BID PO 08/30/24 22:00 08/31/24 08:52 100 MG Cefazolin Sodium 50 ml @ 100 mls/hr Q8HR IV 08/30/24 22:00 09/01/24 14:29 08/31/24 05:39 100 MLS/HR Methylprednisolone Sodium Succinate 80 mg Q8HR IV 08/30/24 22:00 08/31/24 05:38 80 MG Examination: GENERAL:Normal, HEENT:Normal, NECK:Normal, LUNGS:Normal, CVS:Normal, ABDOMEN:Normal, MSK:Normal, MSK:Abnormal (LEFT NECK DRESSING, DRAIN), SKIN:Normal, NEURO:Normal, :Normal laboratory and microbiology Laboratory Tests 08/31/24 04:56 Test 08/31/24 04:56 Range/Units Serum Glucose 148 H 74-106 mg/dL Problem List/Assessment/Plan Problem List/Assessment/Plan * Left-sided upper extremity pain, with cervical radiculopathy/ cervical stenosis: s/p surg * Hypertension. * BPH. * ? uti: culture, iv rocephin * Questionable hyperlipidemia. * Tobacco abuse. The patient was advised to quit. He refused a nicotine patch at this time- time spent 11 mins Plan discussed with: Patient My Orders My Orders Orders - ANT FLORES MD Procedure Category Date Status Time Urine Bacterial BARBARA 08/30/24 Logged Culture 10:27 Ceftriaxone 1gm/50ml PHA 08/31/24 In Process D5w (Rocephin) 09:00 Date of Service: Aug 31, 2024 Billing Provider: ANT FLORES MD Common Visit Codes: [id number] INP/OBS CARE(HIGH) ANT FLORES MD Aug 31, 2024 10:15
[2024-08-31] MEDS: SODIUM CHLORIDE 0.9% 1,000 ML IV SCH (12:42)
[2024-09-01 05:00] VITALS: BP 151/72; PULSE 70; RESP 17; TEMP 98.2; O2SAT 93
[2024-09-01 05:35] LABS: Basophils # (auto) 0 10 ^3/uL (0-0.2); Eosinophils # (auto) 0 10 ^3/uL (0-0.8); Hematocrit 38.1 % (41.0-53.0); Hemoglobin 12.4 g/dL (13.5-17.5); Lymphocytes # (auto) 0.8 10 ^3/uL (0.4-5.4); Lymphocytes % (auto) 5.2 % (10.0-50.0); Mean Corpuscular Hemoglobin 28.2 pg (28.0-32.0); Mean Corpuscular Hgb Conc. 32.7 g/dL (32.0-36.0); Mean Corpuscular Volume 86.2 fL (80.0-100.0); Monocytes # (auto) 0.5 10 ^3/uL (0-1.3); Monocytes % (auto) 3.2 % (0.0-12.0); Neutrophils # (auto) 14.3 10 ^3/uL (1.6-8.6); Neutrophils % (auto) 91.6 % (37.0-80.0); Nucleated Red Blood Cells % 0.1 %; Platelet Count (auto) 203 10^3/uL (140-450); Red Blood Cells 4.41 10^6/uL (4.5-5.90); Red Cell Distribution Width 15.7 % (11.8-14.3); White Blood Cell 15.6 10^3/uL (4.4-10.8)
[2024-09-01 05:44] LABS: Calcium 9.5 mg/dL (8.7-10.4); Chloride 107 mmol/L (98-107); Potassium 4.5 mmol/L (3.5-5.1); Sodium 141 mmol/L (136-145)
[2024-09-01 05:45] LABS: Anion Gap 7 (5-15); Carbon Dioxide 27 mmol/L (20-31)
[2024-09-01 05:50] LABS: BUN/Creatinine Ratio 20.8 (10.0-20.0)
[2024-09-01 05:57] LABS: Blood Urea Nitrogen 26 mg/dL (9-23); Glucose 177 mg/dL (74-106)
--- NOTE | 2024-09-01 06:27 | DVH ---
EXAM: XR Chest, 1 View CLINICAL INDICATION: HTN TECHNIQUE: Frontal view of the chest. COMPARISON: None FINDINGS: LUNGS AND PLEURAL SPACES: Left basilar atelectasis or pneumonia. No pneumothorax. HEART: Unremarkable. No cardiomegaly. MEDIASTINUM: Unremarkable. Normal mediastinal contour. BONES/JOINTS: Unremarkable. No acute fracture. OTHER FINDINGS: . . . IMPRESSION: Left basilar atelectasis or pneumonia.
--- NOTE | 2024-09-01 07:29 | DVHPN2 ---
Progress Note - Surgical Date Seen: Sep 01, 2024 Post op day Post op day: 2 Subjective Patient reports: No new complaints, Feels better Review of Systems: HEENT:Normal, CVS:Normal, RESPIRATORY:Normal, GI:Normal, GI:Abnormal, MSK:Normal, NEURO:Normal (no new decline or complaints) Objective Vital signs Vital Sign Date Time Temp Pulse Resp B/P (MAP) Pulse Ox O2 Delivery O2 Flow Rate FiO2 09/01/24 06:05 151/77 09/01/24 05:00 98.2 70 17 93 98.2 08/31/24 20:00 Room Air* 0 21 Total Intake and Output 08/31/24 08/31/24 09/01/24 15:00 23:00 07:00 Intake Total 510 ml 800 ml Balance 510 ml 800 ml Medications Current Medications Medications Dose Ordered Sig/Zoraida Route Start Time Stop Time Status Last Admin Dose Admin Sodium Chloride 10 ml Q8HR IV 08/29/24 14:00 09/01/24 06:05 10 ML Lorazepam 0.5 mg Q6HP PRN PO 08/29/24 11:30 Docusate Sodium 100 mg BIDPRN PRN PO 08/29/24 11:30 Tamsulosin HCl 0.4 mg QPM PO 08/29/24 18:00 08/31/24 17:47 0.4 MG Atenolol 25 mg BID PO 08/29/24 22:00 08/31/24 21:31 25 MG Hydralazine HCl 10 mg Q6HR IV 08/29/24 18:00 09/01/24 06:05 10 MG Ceftriaxone Sodium 50 ml @ 100 mls/hr DAILY@09 IV 08/31/24 09:00 Hold Ondansetron HCl 4 mg Q4HP PRN IV 08/30/24 16:00 Acetaminophen 650 mg Q6HP PRN PO 08/30/24 16:00 Acetaminophen/ Hydrocodone Bitart 1 tab Q6HP PRN PO 08/30/24 16:00 08/31/24 20:35 1 TAB Morphine Sulfate 1 mg Q4HP PRN IV 08/30/24 16:00 Cyclobenzaprine HCl 10 mg TID PO 08/30/24 22:00 09/01/24 06:05 10 MG Docusate Sodium 100 mg BID PO 08/30/24 22:00 08/31/24 21:27 100 MG Cefazolin Sodium 50 ml @ 100 mls/hr Q8HR IV 08/30/24 22:00 09/01/24 14:29 09/01/24 06:05 100 MLS/HR Methylprednisolone Sodium Succinate 80 mg Q8HR IV 08/30/24 22:00 09/01/24 06:04 80 MG Sodium Chloride 1,000 ml @ 75 mls/hr [id number] IV 08/31/24 10:15 08/31/24 12:42 75 MLS/HR Laboratory Laboratory Tests 09/01/24 04:50 Test 09/01/24 04:50 Range/Units Serum Glucose 177 H 74-106 mg/dL Examination: GENERAL:Normal, HEENT:Normal, NECK:Normal, LUNGS:Normal, CVS:Normal, CVS:Abnormal, MSK:Normal (moving all 4 extremities and ambulating independently ), SKIN:Normal (Anterior left surgical site well approximated with sushil, drain site is present however minimal drainage noted), NEURO:Normal (Patient verbalized resolution and preoperative symptoms), :Normal Problem List/Assessment/Plan Problems: (1) Muscle spasms of neck (2) Postoperative pain after spinal surgery Assessment and Plan Events of today Patient is up ambulating in room Patient has good dietary intake recommend discontinuing IV fluids Continue physical therapy while in-house Patient is cleared to discharge from a spine surgery perspective Disposition: -Pending per admitting team's discretion -Discharge RX: Spine recommends oral analgesics as well as muscle relaxers preferably Flexeril 10 mg 3 times a day -Follow up appointment: with Dr Strickland in two weeks [id number] [facility] [address] [place] [phone] -Pain: Per admitting team's discretion -DVT PPX: -Hold all chemical DVT/ blood thinners for 14 days postoperatively -use mechanical DVT PPX such as SCD's, ambulation -Activity: -PT evaluation and patients progression -Sit at side of bed for meals -Goal: Ambulate independently and safely (may use assistive devices if needed) -Medical Therapy goals: -Afebrile- Patient may develop a expected post operative fever by day 2-3, this may not be accompanied with a elevation in WBC. if fever develops: Acetaminophen for fever. Albuterol nebulizer Tx every 12 hours for 24 hours to facilitate adequate lung expansion and prevent development of atelectasis. -Euglycemic: bloods sugars under 130mmol/L for optimal healing -Normotensive: Avoid events of hypertension. This helps to keep post operative healing intact and avoids destabilization of beneficial hemostatic coagulation. -Dressings -Anterior cervical patients: Nursing may change dressing as needed, expect continuous serosanguineous drainage for the next two days, this is normal and to be expected no -Bowel management: -Colace 100mg bid -Diet: Pants as tolerated -Incentive Spirometer: -10 x hour while awake, RN please educate and observe repeat demonstration, have IS at bedside POD #1 -X-rays: - none indicated at this time -Consults: -Physical Therapy evaluation, treatment recommendations, and discharge recommendations Call with questions Wesley Jurado ACNP- Orthopaedic Spine Surgery nurse practitioner For Dr Yaniv Strickland Patient was examined, chart reviewed, labs evaluated, and diagnostic studies and findings analyzed. Case was discussed with Dr. Denny Strickland who formulated the plan of care. This medical document was created using an electronic medical record system with [employer] dictation system. Although this document has been carefully reviewed, there might still be some phonetic and typographical errors. These areas are purely typographical due to imperfections of the software programs, and do not reflect any compromise in the patient's medical care. Plan discussed with Plan discussed with: Patient Visit Coding Surgery Date of Service if different f: Sep 01, 2024 Billing Provider: MANJINDER JURADO NP Surgery Visit Codes: NOT BILLABLE MANJINDER JURADO NP Sep 01, 2024 07:29
[2024-09-01 08:00] VITALS: PULSE 73; RESP 20; O2SAT 96
[2024-09-01 09:00] VITALS: BP 127/76; PULSE 73; RESP 20; TEMP 98.4; O2SAT 96
--- NOTE | 2024-09-01 10:52 | DVHPN2 ---
Progress Note Date Seen: Sep 01, 2024 Medical Necessity Reason Pt with a Central, PICC or Fol: No Subjective Patient reports: No new complaints Review of Systems: HEENT:Normal, CVS:Normal, RESPIRATORY:Normal, GI:Normal, :Normal, MSK:Normal, NEURO:Normal Objective vital signs Vital Sign Date Time Temp Pulse Resp B/P (MAP) Pulse Ox O2 Delivery O2 Flow Rate FiO2 09/01/24 09:40 73 127/76 09/01/24 09:00 98.4 20 96 98.4 08/31/24 20:00 Room Air* 0 21 Total Intake and Output 08/31/24 08/31/24 09/01/24 15:00 23:00 07:00 Intake Total 510 ml 800 ml Balance 510 ml 800 ml medications Current Medications Medications Dose Ordered Sig/Zoraida Route Start Time Stop Time Status Last Admin Dose Admin Sodium Chloride 10 ml Q8HR IV 08/29/24 14:00 09/01/24 06:05 10 ML Lorazepam 0.5 mg Q6HP PRN PO 08/29/24 11:30 Docusate Sodium 100 mg BIDPRN PRN PO 08/29/24 11:30 Tamsulosin HCl 0.4 mg QPM PO 08/29/24 18:00 08/31/24 17:47 0.4 MG Atenolol 25 mg BID PO 08/29/24 22:00 09/01/24 09:40 25 MG Hydralazine HCl 10 mg Q6HR IV 08/29/24 18:00 09/01/24 06:05 10 MG Ceftriaxone Sodium 50 ml @ 100 mls/hr DAILY@09 IV 08/31/24 09:00 Hold Ondansetron HCl 4 mg Q4HP PRN IV 08/30/24 16:00 Acetaminophen 650 mg Q6HP PRN PO 08/30/24 16:00 Acetaminophen/ Hydrocodone Bitart 1 tab Q6HP PRN PO 08/30/24 16:00 08/31/24 20:35 1 TAB Morphine Sulfate 1 mg Q4HP PRN IV 08/30/24 16:00 Cyclobenzaprine HCl 10 mg TID PO 08/30/24 22:00 09/01/24 06:05 10 MG Docusate Sodium 100 mg BID PO 08/30/24 22:00 09/01/24 09:39 100 MG Cefazolin Sodium 50 ml @ 100 mls/hr Q8HR IV 08/30/24 22:00 09/01/24 14:29 09/01/24 06:05 100 MLS/HR Methylprednisolone Sodium Succinate 80 mg Q8HR IV 08/30/24 22:00 09/01/24 06:04 80 MG Sodium Chloride 1,000 ml @ 75 mls/hr [id number] IV 08/31/24 10:15 08/31/24 12:42 75 MLS/HR Examination: GENERAL:Normal, HEENT:Normal, NECK:Normal, LUNGS:Normal, CVS:Normal, ABDOMEN:Normal, MSK:Normal, MSK:Abnormal (NECK COLLAR), SKIN:Normal, NEURO:Normal, :Normal laboratory and microbiology Laboratory Tests 09/01/24 04:50 Test 09/01/24 04:50 Range/Units Serum Glucose 177 H 74-106 mg/dL Problem List/Assessment/Plan Problem List/Assessment/Plan * Left-sided upper extremity pain, with cervical radiculopathy/ cervical stenosis: s/p surg * Hypertension. * BPH. * ? uti: culture, iv ancef * Questionable hyperlipidemia. * Tobacco abuse. The patient was advised to quit. He refused a nicotine patch at this time- time spent 11 mins advance care planning- full code- time spent 19 mins Plan discussed with: Patient Date of Service: Sep 01, 2024 Billing Provider: ANT FLORES MD Common Visit Codes: [id number] INP/OBS CARE(HIGH) Secondary Visit Codes: [id number] CARE PLAN 30 MINUTES ANT FLORES MD Sep 01, 2024 10:52
[2024-09-01 13:00] VITALS: BP 131/77; PULSE 78; RESP 20; TEMP 98.3; O2SAT 94
[2024-09-01] MEDS: ACETAMINOPHEN 325 MG TAB PO PRN (14:20)
[2024-09-01 16:36] VITALS: BP 127/75; PULSE 74; RESP 16; TEMP 98.2; O2SAT 98
[2024-09-01 20:49] VITALS: BP 139/70; PULSE 86; RESP 20; TEMP 97.7; O2SAT 96
[2024-09-02 00:57] VITALS: BP 125/83; PULSE 78; RESP 19; TEMP 97.7; O2SAT 92
[2024-09-02 05:00] VITALS: BP 130/77; PULSE 66; RESP 19; O2SAT 93
[2024-09-02 09:00] VITALS: BP 140/76; PULSE 66; RESP 19; TEMP 98.3; O2SAT 94
--- NOTE | 2024-09-02 11:30 | DVHDS2 ---
Discharge Summary Date of Admission Aug 29, 2024 at 11:24 Date of Discharge: Sep 02, 2024 Admitting Diagnosis Cervical Radiculopathy Labs/Diagnostic Data: Laboratory Results Test 09/01/24 04:50 08/31/24 04:56 08/29/24 12:39 08/29/24 12:04 White Blood Count 15.6 10^3/uL (4.4-10.8) Red Blood Count 4.41 10^6/uL (4.5-5.90) Hemoglobin 12.4 g/dL (13.5-17.5) Hematocrit 38.1 % (41.0-53.0) Mean Corpuscular Volume 86.2 fL (80.0-100.0) Mean Corpuscular Hemoglobin 28.2 pg (28.0-32.0) Mean Corpuscular Hemoglobin Concent 32.7 g/dL (32.0-36.0) Red Cell Distribution Width 15.7 % (11.8-14.3) Platelet Count 203 10^3/uL (140-450) Mean Platelet Volume 8.0 fL (6.9-10.8) Neutrophils (%) (Auto) 91.6 % (37.0-80.0) Lymphocytes (%) (Auto) 5.2 % (10.0-50.0) Monocytes (%) (Auto) 3.2 % (0.0-12.0) Eosinophils (%) (Auto) 0.0 % (0.0-7.0) Basophils (%) (Auto) 0.0 % (0.0-2.0) Neutrophils # (Auto) 14.3 10 ^3/uL (1.6-8.6) Lymphocytes # (Auto) 0.8 10 ^3/uL (0.4-5.4) Monocytes # (Auto) 0.5 10 ^3/uL (0-1.3) Eosinophils # (Auto) 0 10 ^3/uL (0-0.8) Basophils # (Auto) 0 10 ^3/uL (0-0.2) Nucleated Red Blood Cells 0.1 % Sodium Level 141 mmol/L (136-145) Potassium Level 4.5 mmol/L (3.5-5.1) Chloride Level 107 mmol/L (98-107) Carbon Dioxide Level 27 mmol/L (20-31) Anion Gap 7 (5-15) Blood Urea Nitrogen 26 mg/dL (9-23) Creatinine 1.25 mg/dL (0.700-1.30) Glomerular Filtration Rate Calc 60 mL/min (>90) BUN/Creatinine Ratio 20.8 (10.0-20.0) Serum Glucose 177 mg/dL (74-106) Calcium Level 9.5 mg/dL (8.7-10.4) Total Bilirubin 0.6 mg/dL (0.2-1.0) Aspartate Amino Transferase (AST) 23 U/L (13-40) Alanine Aminotransferase (ALT) 16 U/L (7-40) Alkaline Phosphatase 70 U/L (46-116) Total Protein 6.8 g/dL (5.7-8.2) Albumin 4.1 g/dL (3.2-4.8) Urine Color Light-yellow (Yellow) Urine Clarity Clear (Clear) Urine pH 6.0 (5.0-9.0) Urine Specific [place] 1.009 (1.001-1.035) Urine Protein Negative (Negative) Urine Ketones Negative (Negative) Urine Blood Negative /uL (Negative) Urine Nitrite Negative (Negative) Urine Bilirubin Negative (Negative) Urine Urobilinogen Normal mg/dL (Negative) Urine Leukocyte Esterase 1+ /uL (Negative) Urine RBC None seen /hpf (0 - 3) Urine Microscopic WBC 4 /HPF (0-3) Urine Squamous Epithelial Cells None seen /hpf (<5) Urine Bacteria None seen /hpf (None Seen) Urine Glucose Normal mg/dL (Normal) Prothrombin Time 10.9 sec (9.3-11.8) Prothrombin Time INR 1.03 (0.9-1.15) Activated Partial Thromboplast Time 25.4 SEC (24.5-34.5) Hemoglobin A1c 6.4 % A1C (<5.7) Free Prostate Specific Antigen 1.46 ng/mL (N/A) Percent Free Prostate Specific Ag 24.3 % (.) Prostate Specific Antigen Total 6.0 ng/mL (0.0-4.0) Other Laboratory Tests 09/01/24 04:50 Brief Hx & Hospital Course: The patient is a 74-year-old gentleman who was admitted with a history of increasing pain and weakness in the left upper extremity. The patient's pain is now radiating up to the neck as well as to the base of the skull. The patient has had various treatments including physical therapy and steroid injections without much relief. He denies any trauma. No history of definitive focal deficit except for some numbness in the distal fingers. No chest pain. No shortness of breath. Patient underwent C-spine surgery. Tolerated well. Patient will be discharged home with Cervical Collar to see Dr. Strickland in 2 weeks. Will check CBC prior to DC. Operations or Procedures EXAM: Two-dimensional and M-mode echocardiogram with Doppler and color Doppler. INDICATION Pre-Op RISK FACTORS Height: 65, Weight: 190 DIMENSIONS LVDd 4.7 (3.8-5.7cm) LA (2D) 3.9 (1.9-4.0cm) Aortic Root 4.0 (2.0- 3.7cm) LVDs 2.7 (2.5-4.0cm) LA (MM) (1.9-4.0cm) Aortic Cusp Exc 1.9 (1.5- 2.0cm) EF (%) 74.0 (55-70%) Rt. Atrium (1.9-4.0cm) Asc. Aorta cm IVSd 1.1 (0.7-1.1cm) RV (D) (1.8-2.4cm) PWd 1.1 (0.7-1.1cm) Mitral Valve Mitral Mitral Stenosis E wave 0.84m/s MV Mean GR. mmHg A wave 0.92m/s MV Peak GR. mmHg E/A ratio 0.9 2D MVA cm2 DECEL Time 233ms PRESS 1/2 Time 76ms IVRT ms Dop MVA 2.88cm2 Aortic Valve Aortic Valve Aortic Stenosis V1 1.04m/s AO Mean GR. 5mmHg V2 1.47m/s AO Peak GR. 9mmHg LVOT Diameter 2.1 (1.8-2.4cm) Doppler FERNANDO 2.45cm2 Pulmonic Valve V2 0.98m/s Tricuspid Valve TR Velocity 2.65m/s RVSP 35mmHg LEFT VENTRICLE Mild LVH Mild diastolic dysfunction LVEF normal 60-65% RIGHT VENTRICLE Systolic function is normal TRICUSPID VALVE mild pulmonary htn rvsp 35-40 Conclusion LVEF normal 60-65% Systolic function is normal Mild LVH Mild diastolic dysfunction mild pulmonary htn rvsp 35-40 Operative Report - 2 Report Details Date: 08/30/24 Preop Diagnosis: cervical spinal stenosis with myelopathy Postop Diagnosis: same as pre op Surgeon: Denny Strickland MD String Laster: Henny Jurado NP Anesthesiologist: CM Anesthesia: General Consent: The patient was informed of the risks and benefits of the procedure. These include but are not limited to complications of anesthesia, postoperative infection, incomplete relief of symptoms, recurrence of symptoms, damage to blood vessels, nerves and tendons, deep venous thrombosis, pulmonary embolism and possible need for repeat surgery in the future. Name of Procedure Performed see detailed note Procedure Details Procedure Details: Pre Op Diagnosis: Cervical Degenerative Disk Disease and Severe Spinal Stenosis Causing incapacitating neck pain, radiculopathy and progressive neurologic deficit Post Op Diagnosis: 1. Cervical Degenerative Disk Disease and Spinal Stenosis Causing incapacitating neck pain, radiculopathy and progressive neurologic deficit Procedure: Cervical 3 to 4 anterior cervical discectomy with Cervical 3-4 foraminotomies and facetectomies to decompression the spinal canal and Cervical 4 nerve roots Cervical 4 to 5 anterior cervical discectomy with Cervical 4-5 foraminotomies and facetectomies to decompression the spinal canal and Cervical 5 nerve roots Cervical 5 to 6 anterior cervical discectomy with Cervical 5-6 foraminotomies and facetectomies to decompression the spinal canal and Cervical 6 nerve roots Cervical 3-6 anterior cervical Fusion Cervical 3-6 anterior cervical instrumentation with freestanding cages Cervical 3-4 placement of allograft prosthetic device Cervical 4-5 placement of allograft prosthetic device Cervical 5-6 placement of allograft prosthetic device Microscope for micro dissection Surgeon: Denny Strickland MD Anesthesia: General Assist: Henny Jurado NP Fluids and EBL: see anesthesia note Procedure Note: The patient was seen in the Pre-anesthesia Care Unit and the site of the incision was initialed by me with a felt tipped marker. All questions by the patient were answered to the satisfaction of the patient and the chart was reviewed. The patient was taken to the operating room and placed supine on the [facility] top table. General anesthesia was induced. Neuromonitoring leads were placed. A rolled towel was placed between the shoulder blades to hyperextend out the chest which will allow better exposure of the cervical spine. Halter traction to 10 pounds was placed. The arms were padded and adducted to the patients side making sure all pulses in the hands were present. Tape traction was undertaken on the shoulders to give us better radiographic exposure of the distal cervical spine. A gel-pad was placed under the occiput and 5 degrees of extension was placed on the neck without adverse effects to the patient. The anterior neck was prepped and draped. Pre-operative antibiotics were given 30 minutes prior to the start of the procedure. A c-arm fluoroscope was used to james out the incision site. At this time, a time out was taken per usual protocol. Next an incision was made through the skin with a 15 blade scalpel through the subcutaneous tissue down to the platysma. Self-retainers were placed. The platysma was incised along the longitudinal border with a Metzenbaum scissors. Blunt dissection was made through the deep cervical and pre-tracheal fascia taking care to protect the carotid sheath laterally and the Trachea/esophagus medially. The dissection was carried down to the prevertebral fascia. Any crossing vessels were ligated using a vascular clip or coagulated with a bovie. An esophageal retractor was next used to retract the trachea/esophagus and a bent [address] through the anterior annulus of the cervical disk and a lateral C-arm fluoroscopic image was taken to confirm that we were at the correct level. Next, bovie electrocautery was used to expose the bones of cervical 3,4,5,6 and bipolar electrocuatery was used to lift up the Longus colli and capitus muscles. Black-Belt Self Retainers were used to retract the longus colli and capitus muscles bilaterally as well as the trachea/esophagus to the right and the carotid sheath to the left. Smooth thin Black-Belt retractors were placed proximally and distally and a needle was placed again in the anterior annulus of the disk and an image taken to confirm the correct level. At this point, the microscope was wheeled in and an 11 blade scalpel incised the anterior annulus of the cervical 3/4 and 4/5 and 5/6 disks. Next, straight and curved curettes removed the remainder of the disks all the way down to the posterior longitudinal ligament. Carefully, a Kerison number one rongeur incised the posterior longitudinal ligament at the lateral end of the above disks and using a micro, blunt tip nerve hook to separate the posterior longitudinal ligament from the dura, alternating 1 mm and 2 mm Kerison rongeurs removed the posterior longitudinal ligament. Next, Kerison 1mm and 2 mm rongeurs were alternated to get under the uncinate processes and undercut them to perform foraminotomies and factectomies at the cervical 3/4 and 4/5 and 5/6 levels to decompress the central canal and cervical 4,5 and 6 nerve roots. Next the microscope was wheeled away and the c-arm fluoroscope was wheeled into the field and a lateral image was obtained. Increasing size graft trials were used starting at a 5 mm thick size until the proper tension in the disk space and height samaritan obtained. We then placed final free standing cages at C3/4 and 4/5 and 5/6. Satisfactory placement was confirmed in the AP and lateral views using a C-arm fluoroscope. Copious irrigation of the wound with sterile saline and all bleeding was controlled before closure initiated. At this point, a 10 Danish round Jose M Drain was place deep to the Platysma muscle and the Platysma was approximated with one interrupted 0-Vicryl suture. The subcutaneous tissue was closed with interrupted 2-0 vicryl sutures and the skin was closed with sushil. Sterile dressings were placed and a cervical collar placed, the patient extubated, transferred to the stretcher and taken to the Recovery Room in unremarkable condition. Other Notes: Following the case, in PACU, the patient had placement of a [place] J equivalent cervical collar Condition at Discharge: Stable Final Diagnosis/Problems List * Cervical Radiculopathy- s/p surgery *Hypertension. * BPH. * ? uti * Questionable hyperlipidemia. * Tobacco abuse. The patient was advised to quit. He refused a nicotine patch at this time- time spent 11 mins Discharge Disposition: Home Discharge Instruct/Medications Diet: Consistent carbohydrate Activity: Light activity Activity comment: Keep Cervical Collar in place Follow Up/Referral: Dr. Strickland in 2 weeks Medications: Resume Home Meds Discharge Statement: "Patient was advised to return to the ER or call 911 if any headaches, dizziness, shortness of breath, chest pain, abdominal pain, bleeding, fevers, or worsening of medical condition. Patient was counseled about treatment plan, medications, possible side effects, patientverbalized understanding. All questions were answered to the best of my ability. This discharge took greater then 30 minutes in planning, reviewing documentation, counseling the patient, and discussing with other team members." ASSESSMENT ASSESSMENT Assessment same as pre op Date of Service: Sep 02, 2024 Billing Provider: HENNY GARCIA MD Common Visit Codes: 51883-TJC/OBS DISCH DAY >30min HENNY GARCIA MD Sep 02, 2024 11:30
[2024-09-02 13:00] VITALS: BP 124/70; PULSE 66; RESP 18; TEMP 97.9; O2SAT 94
[2024-09-02 13:27] LABS: Basophils # (auto) 0 10 ^3/uL (0-0.2); Basophils % (auto) 0.1 % (0.0-2.0); Eosinophils # (auto) 0 10 ^3/uL (0-0.8); Hematocrit 40.1 % (41.0-53.0); Hemoglobin 13.1 g/dL (13.5-17.5); Lymphocytes # (auto) 1.2 10 ^3/uL (0.4-5.4); Lymphocytes % (auto) 8.5 % (10.0-50.0); Mean Corpuscular Hemoglobin 28.4 pg (28.0-32.0); Mean Corpuscular Hgb Conc. 32.5 g/dL (32.0-36.0); Mean Corpuscular Volume 87.4 fL (80.0-100.0); Monocytes # (auto) 1.5 10 ^3/uL (0-1.3); Monocytes % (auto) 10.9 % (0.0-12.0); Neutrophils # (auto) 11.2 10 ^3/uL (1.6-8.6); Neutrophils % (auto) 80.5 % (37.0-80.0); Platelet Count (auto) 209 10^3/uL (140-450); Red Blood Cells 4.59 10^6/uL (4.5-5.90); White Blood Cell 13.9 10^3/uL (4.4-10.8)
== END 2024-09-02 14:50 | disposition home or self-care (01) | DRG 472 ==
LOC: EEVIPCON → EAST 11:24
PROVIDERS: ADMIT Internal Medicine; ATTEND Internal Medicine
PROC: 0RB30ZZ Excision of Cervical Vertebral Disc, Open Approach (ICD-10-PCS; 2024-08-30)
PROC: 01N10ZZ Release Cervical Nerve, Open Approach (ICD-10-PCS; 2024-08-30)
PROC: 00NW0ZZ Release Cervical Spinal Cord, Open Approach (ICD-10-PCS; 2024-08-30)
PROC: 4A11X4G Monitoring of Peripheral Nervous Electrical Activity, Intraoperative, External Approach (ICD-10-PCS; 2024-08-30)
PROC: 0RG20A0 Fusion of 2 or more Cervical Vertebral Joints with Interbody Fusion Device, Anterior Approach, Anterior Column, Open Approach (ICD-10-PCS; principal; 2024-08-30 12:04)
DX: M48.02 Spinal stenosis, cervical region (principal); N39.0 Urinary tract infection, site not specified; M54.12 Radiculopathy, cervical region; N40.0 Benign prostatic hyperplasia without lower urinary tract symptoms; E78.5 Hyperlipidemia, unspecified; E66.9 Obesity, unspecified; I10 Essential (primary) hypertension; F17.210 Nicotine dependence, cigarettes, uncomplicated; I27.20 Pulmonary hypertension, unspecified; Z68.31 Body mass index [BMI] 31.0-31.9, adult; Z79.899 Other long term (current) drug therapy
CPT/HCPCS: 36415; 71045; 71046; 72040; 72141; 76000; 80048; 80053; 81001; 83036; 84154; 85025; 85610; 85730; 93005; 93306; 97116; 97163; 97530; G0378; J1100; J1956; J2250; J2405; J2704; J7042

== ENCOUNTER → 2024-11-07 | Outpatient (CLI) | payer MEDICARE, MEDICAID ==
[2024-11-07 06:45] LABS: Urine Bacteria None Seen /hpf (None Seen); Urine Squamous Epithelial Cell None Seen /hpf (<5)
[2024-11-07 08:12] LABS: Urine Blood Negative /uL (Negative); Urine Clarity CLEAR (Clear); Urine Color Light Yellow (Yellow); Urine Protein, UAD Negative (Negative); Urine Specific Gravity 1.015 (1.001-1.035); Urine Urobilinogen Normal (Negative); Urine pH 5.5 (5.0-9.0)
[2024-11-07 08:13] LABS: Urine WBC 3 /HPF (0-3)
== END | disposition home or self-care (01) ==
LOC: LAB 06:41
PROVIDERS: ATTEND Internal Medicine
DX: N39.0 Urinary tract infection, site not specified (principal)
CPT/HCPCS: 81001; 87086